=== PATIENT | female | born 1980 | race American Indian/Alaskan Native ===

== ENCOUNTER 2017-09-02 05:53 | Day surgery (SDC) | payer BC ==
[2017-08-28 11:43] VITALS: BMI 44.1
[2017-09-02] MEDS ORDERED: ceFAZolin 1 gm in NS 1 GM/100 ML BAG IVPB ONE ×2 (07:21→07:22)
[2017-09-02] MEDS ORDERED: Bupivacaine HCl 0.25% PF (30 ml) Inj ONE (07:22)
[2017-09-02] MEDS ORDERED: Lactated Ringer's 1,000 ML IV ONE (07:45)
[2017-09-02] MEDS ORDERED: Midazolam 2 MG/2 ML VIAL ONE ×2 (07:47→08:03)
[2017-09-02] MEDS ORDERED: Lidocaine Hydrochloride 5 ML INJ ONE (07:48)
[2017-09-02] MEDS ORDERED: Propofol 10 mg/ml Inj (20 ML) ONE (07:48)
[2017-09-02] MEDS ORDERED: ceFAZolin 1 gm FROZEN Premix 1 GM/50 ML ML IVPB ONE (08:02)
[2017-09-02] MEDS ORDERED: Lidocaine/Epinephrine 1% 1:100000 10 ML IJ ONE (08:03)
[2017-09-02] MEDS ORDERED: Bacitracin Ointment 30 GM TUBE ONE (08:18)
--- NOTE | 2017-09-02 08:46 | PCM.SURG1 ---
Surgeon's Initial Post Op Note - Surgeon's Notes Surgeon: nahum Rock Crusher: 0 Type of Anesthesia: IV Sedation Anesthesia Administered By: ludwig Pre-Operative Diagnosis: fibroma Operative Findings: lump Post-Operative Diagnosis: same Operation Performed: excision 2 cm lesion Specimen/Specimens Removed: same Estimated Blood Loss: EBL {In ML}: 5 Blood Products Given: N/A Drains Used: No Drains Post-Op Condition: Good Date of Surgery/Procedure: 09/02/17 Time of Surgery/Procedure: 08:49
[2017-09-02 12:35] VITALS: BP 134/88; PULSE 86; RESP 16; TEMP 97.9; O2SAT 100
--- NOTE | 2017-09-02 20:00 | OP ---
PROCEDURE DATE: 09/02/2017 PREOPERATIVE DIAGNOSIS: Fibroma, right posterior thigh. POSTOPERATIVE DIAGNOSIS: Fibroma, right posterior thigh. PROCEDURE CARRIED OUT: Excision of 2 cm painful lesion right posterior thigh. INDICATION: The patient is young woman in good health presents with a painful lesion on the posterior aspect just below the buttock region. OPERATIVE FINDINGS: This was excised completely. Margins were clean. Wound was approximated in a single layer with 5-0 nylon suture. ESTIMATED BLOOD LOSS: Blood loss for the procedure was 5 mL. PATHOLOGY: Pending. PROCEDURE: The patient's area was prepped and draped extensively. We made an incision after we marked it and injected Marcaine and lidocaine mixture with epinephrine. After this had been done, we then made a direct incision into the area, excised this, obtained hemostasis, and closed the wound with multiple sutures. Blood loss for the procedure was 5 mL. Operation carried out, excision of 2 cm lesion right posterior thigh. Ric Covington Jr., MD cc: Mary Alice.
== END 2017-09-02 11:45 | disposition home or self-care (01) ==
LOC: C.SDS 05:53
PROVIDERS: ATTEND Surgery Vascular Surgery
DX: D23.71 Other benign neoplasm of skin of right lower limb, including hip (principal)
CPT/HCPCS: 11403; 88307; J0690; J2250; J2704; J3010; J7120